=== PATIENT | male | born 2005 | race African-American/Black ===

== ENCOUNTER 2024-09-17 01:10 | Outpatient (CLI) | payer OTHER, SELFPAY | END 2024-09-17 01:11 | disposition home or self-care (01) | LOC: AMB 09-20 20:03 | PROVIDERS: Visit Provider Family Medicine | DX: S09.90XA Unspecified injury of head, initial encounter (principal); V49.49XA Driver injured in collision with other motor vehicles in traffic accident, initial encounter; Y92.481 Parking lot as the place of occurrence of the external cause | CPT/HCPCS: A0998 ==

== ENCOUNTER 2025-01-12 20:39 | Emergency (ER) | payer OTHER, SELFPAY ==
--- OUTSIDE RECORDS SUMMARY | 2025-01-12 20:41 | XMS_ITS | Clinical Summary ---
Author Organization [employer] Address [address] [place] [address] Care Team Providers Care Client Service Coordinator Name Role Phone Florian Stokes MD Primary Care Provide r Immunizations Immunization Administration Dates Next Due COVID-19 vaccine (Pfizer), 0 .3 mL, Injectable, mRNA (Purple Top) 03/20/2021,02/27/2021 Social History Tobacco Use Types Packs/Day Years Used Date Smoking Tobacco: Never Assessed Sex and Gender Information Value Date Recorded Sex Assigned at Not on file Legal Sex Male 3:57 PM PDT Gender Identity Not on file Sexual Orientation Not on file Plan of Treatment Health Maintenance Due Date Last Done Comments Hepatitis C after age 18 2004 Preventative Visit Age 19-39 2004 Meningococcal B Vaccine (1 of 2 - Standard) 2020 HIV Screening 2022 Hepatitis B (1 of 3 - 19+ 3-dose series) 2023 COVID-19 Vaccine ( season) 2024 08/24/2022, 11/12/2021, 03/20/2021, Additional history exists Influenza Vaccine (#1) 2024 , 11/12/2021, 09/19/2020, Additional history exists DTaP/Tdap/Td (3 - Td or Tdap) 06/23/2026 06/23/2016, 11/02/2005 zzz Tetanus 06/23/2026 06/23/2016, 11/02/2005 Respiratory Syncytial Virus (RSV) (1 - 1-dose 75+ series) 2079 HPV Vaccines Completed 10/04/2019, 07/21/2018 Meningococcal Vaccines Completed 06/23/2021, 2015 HIB Aged Out No longer eligi ble based on patient's age to complete this topic Pneumococcal Vaccine Ped (0-5 Years) and At Risk Pts (6-64 Years) Aged Out No longer eligible based on patient's age to complete this topic Insurance [facility] [place] [facility] [place] [facility] Care Teams Client Service Coordinator Relationship Specialty Start Date End Date Florian Stokes MD PCP - General Pediatrics 04/06/18
--- OUTSIDE RECORDS SUMMARY | 2025-01-12 20:41 | XMS_ITS | Referral Summary ---
Author Organization [facility] Address [address] [place] [address] Care Team Providers Care Registered Nurse Hh Case Manager Name Role Phone Florian Stokes MD Primary [...] Orientation Not on file Plan of Treatment Not on file Insurance [facility] Care Teams Registered Nurse Hh Case Manager Relationship Specialty Start Date End Date Florian Stokes MD PCP - General Pediatrics 04/06/18
--- OUTSIDE RECORDS SUMMARY | 2025-01-12 20:41 | XMS_ITS | Clinical Summary ---
Author Organization [employer] [facility] Address [address] [place] [id number] Care Team Providers Care Atm Mechanic Name Role Phone Pcp, No Primary Care Provider Unavailabl e Allergies No known active allergies Medications No known medications Active Problems No known active problems Social History Tobacco Use Types Packs/Day Years Used Date Smoking Tobacco: Never Smokeless Tobacco: Never Tobacco Cessation:Counseling Given: Yes Alcohol Use Standard Drinks/Week Comments Yes 0 (1 standard drink = 0.6 oz pur e alcohol) 1x monthly Sex and Gender Information Value Date Recorded Sex Assigned at Not on file Legal Sex Male 2:13 PM CDT Gender Identity Not on file Sexual Orientation Not on file Obstetrics History Last Filed Vital Signs Vital Sign Reading Time Taken Comments Blood Pressure 120/72 09/25/2024 3:34 PM TOW TRUCK DISPATCHER man ual BP Pulse 62 09/25/2024 3:34 PM TOW TRUCK DISPATCHER Temperature 36.2 C (97.2 F) 09/25/2024 3:34 PM TOW TRUCK DISPATCHER Respiratory Rate - - Oxygen Saturation 98% 09/25/2024 3:34 PM TOW TRUCK DISPATCHER Inhaled Oxygen Concentration - - Weight - - Height - - Body Mass Index - - Plan of Treatment Health Maintenance Due Date Last Done Comments Well Child Check for age 3-20 05/07/2007 Tdap 2015 Depression screening for age 12+ 2016 HIV for age 15-65 2019 HPV series for age 9-26 (1 - Male 3-dose series) 2019 BMI (ht and wt on same day) for age 18+ 2022 Hepatitis C screening for ag e 18-79 2022 Tetanus booster 2024 COVID-19 vaccine series ( season) 2024 03/20/2021, 02/27/2021 Influenza for age 9-49 07/23/2024 Meningococcal series for age 11-21 Aged Out No longer eligible b ased on patient's age to complete this topic Pneumococcal series for age 6-49 Aged Out No longer eligible b ased on patient's age to complete this topic Care Teams Atm Mechanic Relationship Specialty Start Date End Date Pcp, No . PCP - General 09/25/24
--- OUTSIDE RECORDS SUMMARY | 2025-01-12 20:41 | XMS_ITS | Referral Summary ---
Author Organization [employer] Address [address] [place] [address] Care Team Providers Care Cotton Bag Sewer Name Role Phone Gamaliel Canseco Primary Care Provider [phone] Allergies No known active allergies Medications No known medications Social History Tobacco Use Types Packs/Day Years Used Date Smoking Tobacco: Never Assessed Sex and Gender Information Value Date Recorded Sex Assigned at Not on file Legal Sex Male 3:48 PM PDT Gender Identity Not on file Sexual Orientation Not on file Last Filed Vital Signs Vital Sign Reading Time Taken Comments Blood Pressure 124/68 05/11/2022 9:12 PM PDT Pulse 60 05/11/2022 9:12 PM PDT Temperature 37 C (98.6 F) 05/11/2022 9:12 PM PDT Respiratory Rate 18 05/11/2022 9:12 PM PDT Oxygen Saturation 97% 05/11/2022 9:12 PM PDT Inhaled Oxygen Concentration - - Weight - - Height - - Body Mass Index - - Plan of Treatment Not on file Procedures Procedure Name Priority Date/Time Associated Diagnosis Comments LIPID PROFILE W REFLEX DIRECT LDL Routine 06/16/2023 9:10 AM PDT from Last 3 Months or Most Recently Relevant to Health Maintenance Results * (ABNORMAL) Lipid Profile w Reflex Direct LDL (06/16/2023 9:10 AM PDT) Cholesterol 171(H) 0 - 169 mg/dL [facility] Comment:For more information , refer to the [employer] [facility] website (https://www.[employer].UIBLUEPRINT/legacylab). Triglyceride 68 0 - 89 mg/dL [facility] Comment:For more information , refer to the [employer] [facility] website (https://www.Deal.com.sg/legacylab). HDL 51 >=40 mg/dL [facility] Comment:For more information , refer to the [employer] [facility] website (https://www.Deal.com.sg/legacylab). LDL 106 0 - 109 mg/dL [facility] Comment: For more information, refer to the [employer] [facility] website (https://www.Deal.com.sg/legacylab). LDL is calculated from Total Cholesterol, HDL, and Triglycerides using the Friedewald equation. Chol/HDL Ratio 3.4 0.0 - 5.0 [facility] Fasting? 12 [facility] Blood 06/16/2023 9:10 AM PDT 06/16/2023 9:13 AM PDT us Gamaliel Canseco CHEMISTRY ORDERABLES Final Resul t [facility] [address] [place] [address] from Last 3 Months or Most Recently Relevant to Health Maintenance Insurance [facility] Care Teams Cotton Bag Sewer Relationship Specialty Start Date End Date Gamaliel Canseco [address] [place] [id number] PCP - General Pediatrics 05/11/22
--- OUTSIDE RECORDS SUMMARY | 2025-01-12 20:41 | XMS_ITS | Clinical Summary ---
Author Organization [facility] Address [address] [place] [address] Care Team Providers Care Barrel Rifler Name Role Phone Gamaliel Canseco Primary Care Provider [phone] Allergies No known active allergies Medications No [...] Due Date Last Done Comments Hepatitis C Ab Screening 2004 Syphilis (RPR) Screening 2004 Depression Screening (PHQ/EPDS) 2016 HIV Screening 2019 HPV Vaccine (1 - Male 3-dose series) 2019 Meningococcal B Vaccine (1 of 2 - Standard) 2020 Hepatitis B Vaccine (1 of 3 - 19+ 3-dose series) 2023 COVID-19 Vaccine ( - season) 2024 11/12/2021, 03/20/2021, 02/27/2021 Influenza Vaccine (#1) 2024 , 09/19/2020, 10/04/2019, Additional history exists Tetanus Vaccine 06/23/2026 06/23/2016 Zoster Vaccine (1 of 2) 2054 Lipid Screening Completed 06/16/2023 Hepatitis A Vaccine Aged Out No longe r eligible based on patient's age to complete this topic Hib Vaccine Aged Out No longer eligi ble based on patient's age to complete this topic Meningococcal ACWY Vaccine Aged Out N o longer eligible based on patient's age to complete this topic Pneumo Vaccine 0-49 yrs Aged Out No l onger eligible based on patient's age to complete this topic Procedures Procedure Name Priority Date/Time Associated Diagnosis Comments LIPID PROFILE W REFLEX DIRECT LDL Routine 06/16/2023 9:10 AM PDT from Last 3 Months or Most Recently Relevant to Health Maintenance Results * (ABNORMAL) Lipid Profile w Reflex Direct LDL (06/16/2023 9:10 AM PDT) Cholesterol 171(H) 0 - 169 mg/dL [facility] Comment:For more information , refer to the [employer] [facility] website (https://www.Renovagen/legacylab). Triglyceride 68 0 - 89 mg/dL [facility] Comment:For more information , refer to the [employer] [facility] website (https://www.Renovagen/legacylab). HDL 51 >=40 mg/dL [facility] Comment:For more information , refer to the [employer] [facility] website (https://www.Renovagen/legacylab). LDL 106 0 - 109 mg/dL [facility] Comment: For more information, refer to the [employer] [facility] website (https://www.Renovagen/legacylab). LDL is calculated from Total Cholesterol, HDL, and Triglycerides using the Friedewald equation. Chol/HDL Ratio 3.4 0.0 - 5.0 [facility] Fasting? 12 [facility] Blood 06/16/2023 9:10 AM PDT 06/16/2023 9:13 AM PDT us Gamaliel E Helm CHEMISTRY ORDERABLES Final Resul t [facility] [address] [place] [address] from Last 3 Months or Most Recently Relevant to Health Maintenance Insurance [facility] Care Teams Barrel Rifler Relationship Specialty Start Date End Date Gamaliel Canseco [address] [place] [id number] PCP - General Pediatrics 05/11/22
--- OUTSIDE RECORDS SUMMARY | 2025-01-12 20:41 | XMS_ITS | Continuity of Care Document ---
Author Organization [facility] Address [address] [place] [address] [place] [address] Phone Care Team Providers Care Plug Making Operator Name Role Phone Kike POPE, Florian Unavailable Unavailable Allergies, Adverse Reactions, Alerts Substance Reaction Status Criticality No Known Allergies Active No Inform ation Medications Medication Instructions Dosage Effective Dates (start - stop) Status Comments No Drug Therapy Prescribed Procedures Procedure Date Office/outpatient visit,est, mod 2018 Infct antigen, influenza Infct antigen, influenza Office/outpatient visit,est, mod 2018 STREP A DNA AMP PROBE Infcts antign, streptococcus Grp A Office/outpatient visit,est, mod 2017 Pure tone audiometry, air Screening visual acuity,jagdish bilat Preventive checkup, est,12-17 yrs Immuniz admnin, 1 vac, sngl/combo HPV VACCINE NON VALENT IM PT-FOCUSED HLTH RISK ASSMT Office/outpatient visit,est, mod 2016 Pure tone audiometry, air Preventive checkup, new,12-17 yrs Screening visual acuity,jagdish bilat PT-FOCUSED HLTH RISK ASSMT Advance Directives Directive Yes / No Effective Date File Name No Information Encounters Encounter Description Practice Location Reason(s) For Visit Diagnoses Date Provider [facility], [address] [place] [address], [place], [id number], [place] tel:[phone] [facility] No Information Kike Du. [address] [place] [address], [place], [id number], [place]. tel:[phone] Office/outpati ent visit,est, mod [facility], [address] [place] [address], [place], [id number], [place] tel:[phone] [facility] hamstring pain (chief complaint) Strain of left hamstring, initial encounter Kike Du. [address] [place] [address], [place], [id number], [place]. tel:[phone] Office/outpati ent visit,est, mod [facility], [address] [place] [address], [place], [id number], [place] tel:[phone] [facility] hent Cough (chief complaint) CoughInfluenza A King Adriana. [address] [place] [address], [place], [id number], [place]. tel:[phone] [facility], [address] [place] [address], [place], [id number], [place] tel:[phone] [facility] No Information Kike Du. [address] [place] [address], [place], [id number], [place]. tel:[phone] Office/outpati ent visit,est, mod [facility], [address] [place] [address], [place], [id number], [place] tel:[phone] [facility] poss strep (chief complaint) Acute sinusitis, unspecified Kike Du. [address] [place] [address], [place], [id number], [place]. tel:[phone] Preventive checkup, est,12-17 yrs [facility], [address] [place] [address], [place], [id number], [place] tel:[phone] [facility] Well child (chief complaint) Encntr for routine child health exam w/o abnormal findingsBMI pediatric, 5th percentile to less than 85% for ageDietary counseling and surveillance Kike Du. [address] [place] [address], [place], [id number], [place]. tel:[phone] [facility], [address] [place] [address], [place], [id number], [place] tel:[phone] [facility] Lumbar pars defectDorsalgia Kike Du. [address] [place] [address], [place], [id number], [place]. tel:[phone] Office/outpati ent visit,est, mod [facility], [address] [place] [address], [place], [id number], [place] tel:[phone] [facility] neck pain (chief complaint) Injury of neck, initial encounter Haley Matias. [address] [place] [address], [place], [id number], [place]. tel:[phone] Preventive checkup, new,12-17 yrs [facility], [address] [place] [address], [place], [id number], [place] tel:[phone] [facility] Well Child (chief complaint) Encntr for routine child health exam w/o abnormal findingsPediatric body mass index (BMI) of 5th percentile to less than 85th percentile for age Kike Du. [address] [place] [address], [place], [id number], [place]. tel:[phone] [facility], [address] [place] [address], [place], [id number], [place] tel:[phone] [facility] No Information Kike Du. [address] [place] [address], [place], [id number], [place]. tel:[phone] Family History Family Member Type Diagnosis Age At Onset Problem (finding) Family history of attention deficit hyperactivity disorder Problem (finding) Family history of thyro id disease Immunizations Vaccine Date Status Comments HPV (9-valent) administered Source: New I mmunization Record Tdap administered Source: Other P rovider MCV4 administered Source: Other P rovider Influenza, live, intranasal, quadrivalent administered Source: Other Provid er Hep A (ped/adol, 2 dose) administered Leni rce: Other Provider Influenza, live, intranasal, quadrivalent administered Source: Other Provid er varicella virus vaccine administered Sour ce: Parents Written Record diphtheria, tetanus toxoids and acellular pertussis vaccine administered Source: Parents Writ ten Record poliovirus vaccine, inactivated administered Source: Parents Writ ten Record measles, mumps and rubella virus vaccine administered Source: Parents Writ ten Record Hep A (ped/adol, 2 dose) administered Leni rce: Parents Written Record DTaP, 5 pertussis antigens administered S ource: Other Provider pneumococcal conjugate vaccine, 13 valent administered Source: Parents Writ ten Record MMR administered Source: Parents Written Record hepatitis B vaccine, pediatr ic or pediatric/adolescent dosage administered Source: P arents Written Record Varicella administered Source: Parents Written Record Haemophilus influenzae type b vaccine, conjugate unspecified formulation administered Source: Parents Writ ten Record poliovirus vaccine, inactivated administered Source: Parents Writ ten Record pneumococcal conjugate vaccine, 13 valent administered Source: Parents Writ ten Record diphtheria, tetanus toxoids and acellular pertussis vaccine administered Source: Parents Writ ten Record pneumococcal conjugate vaccine, 13 valent administered Source: Parents Writ ten Record hepatitis B vaccine, pediatr ic or pediatric/adolescent dosage administered Source: P arents Written Record Haemophilus influenzae type b vaccine, conjugate unspecified formulation administered Source: Parents Writ ten Record diphtheria, tetanus toxoids and acellular pertussis vaccine administered Source: Parents Writ ten Record poliovirus vaccine, inactivated administered Source: Parents Writ ten Record Hep B (ped/adol, 3 dose) administered Leni rce: Parents Written Record Hib (PRP-T) administered Source: Parents Written Record DTaP, 5 pertussis antigens administered S ource: Parents Written Record Polio, Inactive administered Source: Pare nts Written Record Pneumococcal, PCV-13 administered Source: Parents Written Record Payers Payer name Insurance type Covered green party ID Authoriza tion(s) [place] [id number] [place] [id number] Social History Type Description Quantity Date Captured Comments Sex Male Smoking Status No Information Chief Complaint And Reason For Visit No Information Plan Of Treatment Date Type Action Status Referral Referred To: Physical Therapy Ordered: Referrals: Physical Therapy. Location: [facility] ordered Referral Ordered: Referrals: Diagnostic Radiology. Location: [facility]. Diagnostic testing ordered Referral Referred To: Physical Therapy Ordered: Referrals: Physical Therapy. Location: [facility] ordered History Of Present Illness Encounter Date Complaint History Of Prese nt Illness hamstring pain hent Cough Additional infor mation: Vomiting.//[facility]. poss strep Well child neck pain Onset: 5 days ag o. Additional information: //sa. Well Child 12 yr cc Medications Administered Medication Instructions Dosage Effective Dates (start - stop) Status Comments No Drug Therapy Prescribed Instructions Date Instruction Additional Infor mation Physical activity assessment Rel ated to Body mass index (BMI) pediatric, 5th percentile to less than 85th percentile for age Nutrition surveillance Related t o Body mass index (BMI) pediatric, 5th percentile to less than 85th percentile for age Age appropriate anti cipatory guidance discussed. Related to Encntr for routine child health exam w/o abnormal findings Age appropriate diet miya guidance provided. Related to Encntr for routine child health exam w/o abnormal findings Age appropriate safe ty guidance provided. Related to Encntr for routine child health exam w/o abnormal findings Age appropriate anti cipatory guidance discussed. Related to Encntr for routine child health exam w/o abnormal findings Age appropriate diet miya guidance provided. Related to Encntr for routine child health exam w/o abnormal findings Age appropriate safe ty guidance provided. Related to Encntr for routine child health exam w/o abnormal findings Assessments Type Assessment Date No Information
--- OUTSIDE RECORDS SUMMARY | 2025-01-12 20:41 | XMS_ITS | Data Portability ---
Author Organization [place] - [place], [facility] Address [address] [facility], [facility] [address] [place] [address] Care Team Providers Care Marine Safety Officer Name Role Phone ANNE KIRBY MD Referring Provider [phone] Assessment Encounter Date Assessment Date Assessment LastModified by Organization Details LastModified Time 11/06/2022 11/06/2022 Physical Therapy Assessment Signs and symptoms appear consistent with the following PT diagnosis: mild acute medial hamstring strain as the primary pain generator. Signs and symptoms do not allow us to rule out lumbar spine, knee, hip. Adjacent structures and other contributing factors to this condition include TFL and psoas shortening LUIS DANIEL, history of recurrent hamstring injury, history of aggressive home workouts for football training, tendency for quad dominant strength training. Today's visit: Connor returned today after two days of back pain that appear consistent with potential disc issues with sciatic types symptoms radiating into the L post. thigh, symptoms in the thigh not always the same and therapist suspected hamstring issue is also still prevalent and healing at this time. Reviewed HEP and encouraged patient to add prone press ups; encouraged modification from sprinting and plyometrics however encouraged continued strength training as tolerated. Plan: f/u on back symptoms and re-introduce plyometrics [email or web address] Not available 11/06/2022 18:28:45 11/13/2022 11/13/2022 Telehealth Assessment Method used for this visit synchronous audio/visual platform. This telehealth visit was medically necessary for the patient for the following reason(s): restricted access to care (inclement weather) Today's visit: Connor's symptoms greatly improving in low back with various ROM assessment today, slight end range flexion pain however all other directions were improved with no symptoms. Instructed Connor to return to traditional deadlift with trap bar and returning to squatting, held RDLs and discussed low weight and focus on form at this time. Instructed in mobility activities today for low back and nerve flossing for sciatic nerve, able to work through these for one set each with no reported symptoms. Encouraged light cardio this week as well. Plan: progress to plyometrics as tolerated [email or web address] Not available 11/13/2022 16:02:54 11/20/2022 11/20/2022 Telehealth Assessment Method used for this visit synchronous audio/visual platform. This telehealth visit was medically necessary for the patient for the following reason(s): restricted access to care (inclement weather) Today's visit: No noted symptoms with repeated testing today for lumbar and hamstring symptoms Able to progressed to more mobility activities; heavy encouragement for Connor to remain compliant with these for mcc and back and leg health. Progressed to leg strengthening activities including [place] hamstring curls, split squats, standing clamshells, and SL RDLs; tolerated well instructed Connor to focus on form and avoid over doing things based on sets and reps. Plan: progress to plyometrics as tolerated [email or web address] Not available 11/20/2022 16:14:47 12/14/2022 12/14/2022 Physical Therapy Assessment: Connor has made excellent progress towards his goals of: returning to sprinting, decreasing pain with stretching, and strengthening his hamstrings His pain levels have: decreased in post. thigh and low back He continues to have challenges with: return to full unrestricted activities including higher level plyometric activities with running and jumping, mild weakness in LEs. Based on his presentation today, I would advise we continue PT: 1xMonth for 8 weeks for 2 additional visits. PLAN OF CARE Continue PT 1xMonth for 8 weeks for 2 additional visits. [email or web address] Not available 12/14/2022 21:49:35 01/11/2023 01/11/2023 Physical Therapy Assessment: Connor has made excellent progress with this series of physical therapy. Symptoms have significantly improved, objective measures of range of motion and strength have increased, which has yielded an improvement in function. Given the improvement in status and ability to self-manage, Connor is now appropriate for discharge from physical therapy. Should symptoms return, Connor should return to physical therapy for additional assessment and treatment. -Patient demonstrates good understanding and performance of HEP -Patient demonstrates good understanding of HEP for injury prevention -Patient has returned to previous functional level -Patient displays understanding of training regimen to avoid recurrent injury -Patient is able to maintain proper posture and body mechanics -Patient demonstrates adaptive pain behaviors Today's visit: Progressing well at this time with minimal symptoms with testing today Continued plyometric work including box jumps, shuttle runs with ball tosses, rebounder SL stance work, and SL jumps. Reviewed HEP Program and progressed as needed, Connor is moving well, our goal was to continue to encourage back and leg mobility. PLAN OF CARE: Based on my current assessment, I recommend that the patient be Discharged from PT, continue with their HEP as instructed and call if they have any questions or concerns regarding their home program. [email or web address] Not available 01/11/2023 19:44:46 Plan of Treatment Reminders Order Date Submit Date Provider Last Modified By Organization Details Last Modified Time Details Appointments None record ed. Lab None record ed. Referral None record ed. Procedures None record ed. Surgeries None record ed. Imaging None record ed. Medication Orders None record ed. 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 1 Not available Not available Not available [facility] goal of Functional Scores Patient-Speci fic Functional Scale Activity 1=7 Not available Not available Not available [facility] goal of Functional Scores Patient-Speci fic Functional Scale Activity 3=7 Not available Not available Not available [facility] goal of Functional Scores Patient-Speci fic Functional Scale Activity 2=7 Not available Not available Not available middle or intermediate school principal goal of HEP Compliance independent in home exercise program Not available Not available Not available 11/13/2022 [id number] 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 Scale 1 Not available Not available Not available middle or intermediate school principal goal of Functional Scores Patient-Speci fic Functional Scale Activity 1=7 Not available Not available Not available middle or intermediate school principal goal of Functional Scores Patient-Speci fic Functional Scale Activity 3=7 Not available Not available Not available [facility] goal of Functional Scores Patient-Speci fic Functional Scale Activity 2=7 Not available Not available Not available middle or intermediate school principal goal of HEP Compliance independent in home exercise program Not available Not available Not available 11/20/2022 [id number] [facility] goal of Pain Scale 1 Not available Not available Not available middle or intermediate school principal goal of Functional Scores Patient-Speci fic Functional Scale Activity 1=7 Not available Not available Not available middle or intermediate school principal goal of Functional Scores Patient-Speci fic Functional Scale Activity 3=7 Not available Not available Not available middle or intermediate school principal goal of Functional Scores Patient-Speci fic Functional Scale Activity 2=7 Not available Not available Not available middle or intermediate school principal goal of HEP Compliance independent in home exercise program Not available Not available Not available 12/14/2022 [id number] [facility] goal of Pain Scale 1 Not available Not available Not available middle or intermediate school principal goal of Functional Scores Patient-Speci fic Functional Scale Activity 1=7 Not available Not available Not available middle or intermediate school principal goal of Functional Scores Patient-Speci fic Functional Scale Activity 3=7 Not available Not available Not available [facility] goal of Functional Scores Patient-Speci fic Functional Scale Activity 2=7 Not available Not available Not available [facility] goal of HEP Compliance independent in home exercise program Not available Not available Not available 01/11/2023 [id number] Pain Scale 1 Not available Not available Not available Functional Scores Patient-Speci fic Functional Scale Activity 1=7 Not available Not available Not available Functional Scores Patient-Speci fic Functional Scale Activity 3=7 Not available Not available Not available Functional Scores Patient-Speci fic Functional Scale Activity 2=7 Not available Not available Not available HEP Compliance independent in home exercise program Not available Not available Not available Patient Instructions Encounter Date Encounter Id Patient Instructions Last Modified By Organization Details Last Modified Time 11/06/2022 [id number] Access Code: [email or web address] URL: [email or web address] Date: 11/06/2022 Prepared by: Willem West Program Notes Yoga 2x per week. Isolated hamstring, quad, calf, hip flexor stretching will be helpful mcc. For the next 2 weeks- no sprinting, light jogging is okay as long as pain < 3/10. Decrease range and resistance with lift or squats etc. Exercises Supine Gluteus and Hamstring Sets on Uzbek Ball - 1 x daily - 7 x weekly - 2 sets - 10 reps - 10 seconds hold Table Bridge - 1 x daily - 4-5 x weekly - 3 sets - 8 reps Prone Hip Flexor Stretch on Table with Strap - 1 x daily - 7 x weekly - 2 sets - 60 seconds hold Supine Hip Internal and External Rotation - 1 x daily - 7 x weekly - 2 sets - 60 seconds hold Prone Press Up - 3-6 x daily - 7 x weekly - 1 sets - 10 reps [email or web address] Not available 11/06/2022 18:15:37 11/13/2022 [id number] Access Code: [email or web address] URL: [email or web address] Date: 11/06/2022 Prepared by: Willem West Program Notes Yoga 2x per week. 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 For the next 2 weeks- no sprinting, light jogging is okay as long as pain < 3/10. Decrease range and resistance with lift or squats etc. Exercises Supine Gluteus and Hamstring Sets on Uzbek Ball - 1 x daily - 7 x weekly - 2 sets - 10 reps - 10 seconds hold Table Bridge - 1 x daily - 4-5 x weekly - 3 sets - 8 reps Prone Hip Flexor Stretch on Table with Strap - 1 x daily - 7 x weekly - 2 sets - 60 seconds hold Supine Hip Internal and External Rotation - 1 x daily - 7 x weekly - 2 sets - 60 seconds hold Prone Press Up - 3-6 x daily - 7 x weekly - 1 sets - 10 reps [email or web address] Not available 11/13/2022 15:36:32 11/20/2022 [id number] Access Code: [email or web address] URL: [email or web address] Date: 11/06/2022 Prepared by: Willem West Program Notes Yoga 2x per week. Isolated hamstring, quad, calf, hip flexor stretching will be helpful mcc. For the next 2 weeks- no sprinting, light jogging is okay as long as pain < 3/10. Decrease range and resistance with lift or squats etc. Exercises Supine Gluteus and Hamstring Sets on Uzbek Ball - 1 x daily - 7 x weekly - 2 sets - 10 reps - 10 seconds hold Table Bridge - 1 x daily - 4-5 x weekly - 3 sets - 8 reps Prone Hip Flexor Stretch on Table with Strap - 1 x daily - 7 x weekly - 2 sets - 60 seconds hold Supine Hip Internal and External Rotation - 1 x daily - 7 x weekly - 2 sets - 60 seconds hold Prone Press Up - 3-6 x daily - 7 x weekly - 1 sets - 10 reps [email or web address] Not available 11/19/2022 16:55:15 12/14/2022 [id number] Access Code: [email or web address] URL: [email or web address] Date: 11/06/2022 Prepared by: Willem West Program Notes Yoga 2x per week. Isolated hamstring, quad, calf, hip flexor stretching will be helpful mcc. For the next 2 weeks- no sprinting, light jogging is okay as long as pain < 3/10. Decrease range and resistance with lift or squats etc. Exercises Supine Gluteus and Hamstring Sets on Uzbek Ball - 1 x daily - 7 x weekly - 2 sets - 10 reps - 10 seconds hold Table Bridge - 1 x daily - 4-5 x weekly - 3 sets - 8 reps Prone Hip Flexor Stretch on Table with Strap - 1 x daily - 7 x weekly - 2 sets - 60 seconds hold Supine Hip Internal and External Rotation - 1 x daily - 7 x weekly - 2 sets - 60 seconds hold Prone Press Up - 3-6 x daily - 7 x weekly - 1 sets - 10 reps [email or web address] Not available 12/14/2022 14:32:57 01/11/2023 [id number] Access Code: [email or web address] URL: [email or web address] Date: 11/06/2022 Prepared by: Willem West Program Notes Yoga 2x per week. Isolated hamstring, quad, calf, hip flexor stretching will be helpful mcc. For the next 2 weeks- no sprinting, light jogging is okay as long as pain < 3/10. Decrease range and resistance with lift or squats etc. Exercises Supine Gluteus and Hamstring Sets on Uzbek Ball - 1 x daily - 7 x weekly - 2 sets - 10 reps - 10 seconds hold Table Bridge - 1 x daily - 4-5 x weekly - 3 sets - 8 reps Prone Hip Flexor Stretch on Table with Strap - 1 x daily - 7 x weekly - 2 sets - 60 seconds hold Supine Hip Internal and External Rotation - 1 x daily - 7 x weekly - 2 sets - 60 seconds hold Prone Press Up - 3-6 x daily - 7 x weekly - 1 sets - 10 reps [email or web address] Not available 01/11/2023 18:52:49 Reason for Referral None Reported. Problems Name Problem SNOMED Code Status Onset Date Resolution Date Notes Provider Name and Address Organization Details Recorded Time Strain of hamstring muscle 253722886315 Active 2021 Brianna Chacko DPT [address] [facility], [address], [address], [place] - [facility] 15:56:37 Problem Notes None recorded. Procedures Surgical History Date Name Laterality Status Provider Name and Address Organization Details Recorded Time 9 42729:*[place] Total Billable Treatment Duration completed Brianna Chacko DPT [address]338 [facility], [address], [address], [place] [facility] 03/14/2019 19:47:13 9 97022:*[place] Total Billable Treatment Duration completed Brianna Chacko DPT [address] [facility], [address], [address], [place] [facility] 03/12/2019 20:08:32 9 79468: *Therapeutic Activities completed Brianna Chacko DPT [address] [facility], [address], [address], [place] [facility] 03/12/2019 20:10:46 9 53138 PT Evaluation Medium Complexity completed Brianna Chacko DPT [address]142 [facility], [address], [address], [place] [facility] 03/12/2019 20:10:25 8 21729:*[place] Total Billable Treatment [place] [address] [facility], [address], [address], [place] [facility] 02/22/2018 19:13:34 8 09937: *The[place] [address] [facility], [address], [address], [place] [facility] 02/22/2018 20:24:42 8 09417:*[place] Total Billable Treatment [place] [address] [facility], [address], [place], [address], [place] [facility] 02/18/2018 19:46:01 8 33105: Manual Therapy (1:1) [place] [address] [facility], [address], [place], [address], [place] [facility] 02/18/2018 19:46:01 8 01279: *Therapeutic Activities [place] [address] [facility], [address], [place], [address], [place] [facility] 02/18/2018 19:52:16 8 51603:*[place] Total Billable Treatment [place] [address] [facility], [address], [place], [address], [place] [facility] 02/15/2018 19:08:06 8 98881: Manual Therapy (1:1) [place] [address] [facility], [address], [place], [address], [place] [facility] 02/15/2018 19:07:42 8 30031: *Therapeutic Activities [place] [address] [facility], [address], [place], [address], [place] [facility] 02/15/2018 19:42:06 8 91485:*[place] Total Billable [place] [address] [facility], [address], [place], [address], [place] [facility] 02/11/2018 20:26:23 8 91538: Manual Therapy (1:1) [place] [address] [facility], [address], [place], [address], [place] [facility] 02/11/2018 20:25:52 8 73012: *Therapeutic Activities [place] [address] [facility] [address] [facility] [address], [address], [place], [address], [place] [facility] 02/11/2018 20:25:52 8 20561:*[place] Total Billable Treatment [place] [address] [facility] [address], [address], [place], [address], [place] [facility] 01/31/2018 10:27:47 8 80361: Manual Therapy (1:1) [place] [address] [address], [address], [place], [address], [place] [facility] 01/31/2018 10:11:00 8 87830: *[place]rapeutic [place] [address] [address], [address], [place], [address], [place] [facility] 01/31/2018 10:43:18 8 84634:*[place] Total Billable [place] [address], [address], [place], [address], [place] [facility] 01/28/2018 10:45:20 8 04675: Manual Therapy (1:1) [place] [address] [address], [address], [place], [address], [place] [facility] 01/28/2018 10:45:01 8 09788: *Therapeutic [place] [address] [address], [address], [place], [address], [place] [facility] 01/28/2018 10:45:01 8 38380:*[place] Total Billable Treatment [place] [address] [facility], [address], [place], [address], [place] [facility] 01/25/2018 10:11:22 8 80642: Manual Therapy (1:1) [place] [address] [facility], [address], [place], [address], [place] [facility] 01/25/2018 10:11:42 8 08657: *Therapeutic [place] [address] [facility], [address], [place], [address], [place] [facility] 01/25/2018 10:44:02 8 41895:*[place] Total Billable Treatment [place] [address] [facility], [facility] [address], [place], [address], [place] [facility] 01/20/2018 17:03:23 8 33068: *Therapeutic [place] [address] [facility], [address], [place], [address], [place] [facility] 01/20/2018 17:03:42 8 37573 PT Evaluation Medium [place] [address] [facility], [facility] [address], [place], [address], [place] [facility] 01/20/2018 17:01:21 Imaging Results None recorded. Procedure Notes None recorded. Medical Equipment None Reported. 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 01/21/2018 14:08:53 What Is Your Level Of Alcohol Consumption? None Information not available 01/21/2018 What Is Your Level Of Caffeine Consumption? Occasional Information not available 01/21/2018 Live Alone Or With Others? With Others Information not available 01/21/2018 Living Setting Stairs (railing) Info rmation not available 01/21/2018 Do You Exercise Outside Of Normal Daily Activities? 3-4 Days/wk Information not available 01/21/2018 Occupation Status Student Information not available 01/21/2018 Exercise, Sports/Recreati on Consisting Of Football, Wrestling, Running, Playing Information not available 01/21/2018 How Do You Rate Your General Health? Excellent Information not available 01/21/2018 Are You Seeing Any Other Health Care Providers Other Than The Physical Therapist For This Condition? Im Not Information not available 01/21/2018 Previous Functional Level Independent In All Self-care Activities (bathing-toileti gu-[id number]. ) Information not available 01/21/2018 What Was The Date Of Your Most Recent Tobacco Screening? 01/21/2018 Information not available 06/15/2019 General Stress Level Low Information not available 01/21/2018 Sex: Unknown Functional Status None recorded. Mental Status None recorded. Family History Relationship Description Onset Age of this Age Resolved Age Notes LastModified by Organization Details LastModified Time Unspecified Relation Diabetes mellitus Not available 01/21 14:08:44 Unspecified Relation Heart disease Not available 01/21 14:08:49 Medical History No medical history recorded. Past Encounters Encounter ID Performer Location Encounter Start Date Encounter Closed Date Diagnosis/Indication Diagnosis SNOMED-CT Code Diagnosis ICD10 Code Diagnosis Note [id number] Jose Valdes, PT [facility] [address] [place] [address], [address] [place] [address] 01/20/2018 12:00:11 01/20/2018 13:30:11 Strain of hamstring muscle 8030474809 04 S76.319A [id number] Jose Valdes, PT [facility] [address], [address] [place] [address] 01/25/2018 10:10:20 01/25/2018 10:54:55 Strain of hamstring muscle [id number] 04 S76.319A [id number] Raphael Wong, [facility] [address], [address] [place] [address] 01/28/2018 10:35:38 01/28/2018 13:04:25 Strain of hamstring muscle [id number] 04 S76.319A [id number] Raphael Wong, PT [facility] [address], [address] [place] [address] 01/31/2018 09:59:43 01/31/2018 11:02:23 Strain of hamstring muscle 0333308747 04 S76.319A [id number] Raphael Wong, PT [facility] [address], [address] [place] [address] 02/11/2018 19:34:38 02/11/2018 20:21:15 Strain of hamstring muscle 0211085174 04 S76.319A [id number] Raphael Wong PT [facility] [address], [address] [place] [address] 02/15/2018 18:57:11 02/15/2018 20:27:31 Strain of hamstring muscle 6638141892 04 S76.319A [id number] Raphael Wong, PT [facility] [address], [address] [place] [address] 02/18/2018 19:10:02 02/18/2018 19:48:35 Strain of hamstring muscle 3820340122 04 S76.319A [id number] Jose Valdes, PT [facility] [place] [address], [address] [place] [address] 02/22/2018 19:09:15 02/22/2018 19:50:53 Strain of hamstring muscle 5634655677 04 S76.319A [id number] Brianna Chacko, DPT [facility] [place] [address], [address] [place] [address] 03/11/2019 12:41:34 03/11/2019 13:39:51 Strain of hamstring muscle 2635457435 S76.311D [id number] Brianna Chacko, DPT [facility] [place] [address], [address] [place] [address] 03/14/2019 19:42:30 03/14/2019 20:34:06 Strain of hamstring muscle 5845852518 S76.311D [id number] Brianna Chacko, DPT [facility] [place] [address], [address] [place] [address] 03/17/2019 19:42:35 03/17/2019 20:38:01 Strain of hamstring muscle [id number] S76.311D [id number] Brianna Chacko, DPT [facility] [place] [address] [place] [address] 03/21/2019 18:59:47 03/21/2019 19:57:24 Strain of hamstring muscle [id number] S76.311D [id number] Jose Valdes, PT [facility] [place] [address], [address] [place] [address] 04/06/2019 18:39:31 04/06/2019 20:02:48 Strain of hamstring muscle [id number] S76.311D [id number] Eloy Dowling PT [facility] [place] [address] [place] [address] 01/04/2020 09:07:48 01/04/2020 10:07:45 Pain in left knee [id number] 38600 M25.562 Sprain of medial collateral ligament of knee 79410399 S83.412D Tenderness on medial joint line of knee 108328882 M25.767 [id number] Jose Valdes, PT [facility] [place] [address] [place] [address] 01/11/2020 10:06:04 01/11/2020 11:25:54 Pain in left knee [id number] 70748 M25.562 Sprain of medial collateral ligament of knee 30740392 S83.412D Tenderness on medial joint line of knee 612842322 M25.757 [id number] Jose Valdes, PT [facility] [place] [address] [place] [address] 01/18/2020 11:02:19 01/18/2020 12:02:57 Pain in left knee 5310355357 95570 M25.562 Sprain of medial collateral ligament of knee 03838631 S83.412D Tenderness on medial joint line of knee 802620710 M25.734 [id number] Brianna Chacko DPT [facility] [place] [address] [place] [address] 01/24/2020 19:29:04 01/24/2020 20:30:25 Pain in left knee [id number] 86459 M25.562 Sprain of medial collateral ligament of knee 80048378 S83.412D Tenderness on medial joint line of knee 307386329 M25.925 [id number] Jose Valdes, PT [facility] [place] [address] [place] [address] 02/01/2020 12:58:09 02/01/2020 13:40:04 Pain in left knee [id number] 86156 M25.562 Sprain of medial collateral ligament of knee 91045237 S83.412D Tenderness on medial joint line of knee 147080530 M25.277 [id number] Brianna Chacko DPT [facility] [place] [address] [facility] [place] [address] 07/30/2021 20:55:01 07/30/2021 22:17:50 Knee pain 00170017 M25.569 Sprain of medial collateral ligament of knee 26449422 S83.412D Sprain of lateral collateral ligament of knee 05309326 S83.422D [id number] Brianna Chacko DPT [facility] [place] [address] [place] [address] 08/06/2021 20:27:31 08/06/2021 21:54:26 Knee pain 15566017 M25.569 Sprain of medial collateral ligament of knee 28833092 S83.412D Sprain of lateral collateral ligament of knee 63924312 S83.422D [id number] Brianna Chacko, DPT [facility] [place] [address] [place] [address] 08/20/2021 11:27:17 08/20/2021 12:36:27 Knee pain 85165700 M25.569 Sprain of medial collateral ligament of knee 84074113 S83.412D Sprain of lateral collateral ligament of knee 57861274 S83.422D [id number] Pelon Woodson, PT [facility] [place] [address] [place] [address] 11/05/2021 19:30:02 11/05/2021 21:07:06 Patellofemoral stress syndrome 030322637 M22.2X9 Patellar maltracking 250 914036 M22.2X9 [id number] Willem West, PT [facility] [place] [address] [place] [address] 11/10/2021 14:16:13 11/10/2021 15:03:06 Patellofemoral stress syndrome 886274194 M22.2X9 Patellar maltracking 250 015465 M22.2X9 [id number] Willem West, PT [facility] [place] [address] [place] [address] 11/12/2021 12:27:21 11/12/2021 13:32:30 Patellofemoral stress syndrome 108122281 M22.2X9 Patellar maltracking 250 106768 M22.2X9 [id number] Jose Angel Barton, [employer] [facility] [place] [address] [place] [address] 11/28/2021 18:46:46 11/28/2021 20:52:54 Patellofemoral stress syndrome 256091910 M22.2X9 Patellar maltracking 250 673513 M22.2X9 [id number] Willem West, PT [facility] [place] [address] [place] [address] 12/08/2021 20:06:50 12/08/2021 20:49:41 Patellofemoral stress syndrome 302634952 M22.2X9 Patellar maltracking 250 176860 M22.2X9 [id number] Willem West, PT [facility] [place] [address] [place] [address] 12/17/2021 20:22:56 12/17/2021 21:35:31 Patellofemoral stress syndrome 991845876 M22.2X9 Patellar maltracking 250 916966 M22.2X9 [id number] Willem West, PT [facility] [place] [address] [place] [address] 12/24/2021 18:54:37 12/24/2021 19:54:56 Patellofemoral stress syndrome 901052058 M22.2X9 Patellar maltracking 250 840750 M22.2X9 [id number] Jose Angel Barton, [employer] [facility] [place] [address] [place] [address] 12/31/2021 19:45:34 12/31/2021 20:57:45 Patellofemoral stress syndrome 960772334 M22.2X9 Patellar maltracking 250 191388 M22.2X9 [id number] Jose Angel Barton, [employer] [facility] [place] [address] [place] [address] 01/07/2022 19:46:43 01/07/2022 20:44:24 Patellofemoral stress syndrome 662114401 M22.2X9 Patellar maltracking 250 876094 M22.2X9 [id number] Jose Angel Barton, [employer] [facility] [place] [address] [place] [address] 01/14/2022 19:03:11 01/14/2022 19:53:11 Patellofemoral stress syndrome 248743402 M22.2X9 Patellar maltracking 250 272120 M22.2X9 [id number] Willem West, PT [facility] [place] [address] [place] [address] 01/21/2022 18:57:43 01/21/2022 19:56:26 Patellofemoral stress syndrome 682207001 M22.2X9 Patellar maltracking 250 462560 M22.2X9 [id number] Brianna Chacko, DPT [facility] [place] [address] [place] [address] 10/22/2022 12:58:22 10/22/2022 14:16:58 Strain of hamstring muscle 1302212591 04 S76.311D [id number] Willem West, PT [facility] [place] [address] [place] [address] 11/06/2022 17:32:25 11/06/2022 18:30:39 Strain of hamstring muscle 1525881171 04 S76.311D [id number] Willem Brett, PT [facility] [place] [address] [place] [address] 11/13/2022 15:30:27 11/14/2022 18:37:22 Strain of hamstring muscle 8622777599 04 S76.311D [id number] Willem West, PT [facility] [place] [address] [place] [address] 11/20/2022 12:59:17 11/20/2022 13:48:01 Strain of hamstring muscle 0432415777 04 S76.311D [id number] Willem West, PT [facility] [place] [address] [place] [address] 12/14/2022 18:59:58 12/14/2022 19:37:42 Strain of hamstring muscle 6290593476 04 S76.311D [id number] Willem West, PT [facility] [place] [address] [place] [address] 01/11/2023 19:00:30 01/11/2023 19:58:41 Strain of hamstring muscle 7206554338 04 S76.311D Health Concerns Section Related Observation LastModified by Organization Detai ls LastModified Time None Recorded Concern Status LastModified by Organization Details LastModified Time None Recorded Advance Directives Directive None Recorded Payers Encounter Date Sequence Insurance Name Policy Number Policy Louise Covered Member ID Louise Member ID Guarantor Name 11/06/2022 1 [facility] [id number] Natasha White [id number] 11/13/2022 1 [facility] [id number] Natasha White [id number] 11/20/2022 1 [facility] [id number] Natasha White [id number] 12/14/2022 1 [facility] [id number] Natasha White [id number] 01/11/2023 1 [facility] [id number] Natasha White [id number] Notes Date Note Type Note Provider Name and Address Organization Details Recorded Time 11/06/2022 text/html HPI DailyReporte d bypatient.Notes:Rep orts that he was deadlifting and then afterwards went to reach down in a cabinet that symptoms began Reports that bending forward has been painful, it is improving but has been troublesome. Functional Assessment (PSFS Master)Reported bypatient.Functiona l Scores:Patient-Spec ific Functional Scale Activity 1= stretch pain free :Status 2; Patient-Specific Functional Scale Activity 2 = sprinting drills pain free :Status 2; Patient-Specific Functional Scale Activity 3= isolated HS strengthening without pain: Status 2 [place] [address], [address], [place] - [facility] 11/06/2022 18:29:16 11/13/2022 text/html HPI DailyReporte d bypatient.Notes:Rep orts that back is doing better Reports that he hasn't been too active Reports that back pain has still persisted but only in the low back instead of radiating down into the legs Reports he is finding he can move a little bit better with bending Functional Assessment (PSFS Master)Reported bypatient.Functiona l Scores:Patient-Spec ific Functional Scale Activity 1= stretch pain free :Status 2; Patient-Specific Functional Scale Activity 2 = sprinting drills pain free :Status 2; Patient-Specific Functional Scale Activity 3= isolated HS strengthening without pain: Status 2 Telehealth Visit Consent {{Patient* Guardian }} acknowledged understanding of telehealth physical therapy and verbally consented to receiving physical therapy care virtually. Physical Location of Patient:{{input address [address] [facility] [place] [address]#}} Emergency Contact Name:{{input emergency contact name Natasha White#}} Emergency Contact Number:{{input emergency contact number #}} [place] [address] [facility], [address], [address], [employer] [place] [employer] 11/13/2022 16:33:44 11/20/2022 text/html HPI DailyReporte d bypatient.Notes:Rep orcedric that overall pain has felt better Reports less consistent with HEP program Reports by patient and caregiver Functional Assessment (PSFS Master)Reported bypatient.Functiona l Scores:Patient-Spec ific Functional Scale Activity 1= stretch pain free :Status 2; Patient-Specific Functional Scale Activity 2 = sprinting drills pain free :Status 2; Patient-Specific Functional Scale Activity 3= isolated HS strengthening without pain: Status 2 [place] [address], [address], [employer] [place] - [employer] 11/20/2022 16:14:56 12/14/2022 text/html HPI DailyReporte d bypatient.Notes:Rep blackwood that overall things are going well Reports that he murphy been keeping up with strength training in the gym and getting on the field as well (some light drills) Reports that he has been keeping up with HEP program Doing his gym routine fairly well. Functional Assessment (PSFS Master)Reported bypatient.Functiona l Scores:Patient-Spec ific Functional Scale Activity 1= stretch pain free :Status 9; Patient-Specific Functional Scale Activity 2 = sprinting drills pain free :Status 10 = Able to perform activity at preinjury level; Patient-Specific Functional Scale Activity 3= isolated HS strengthening without pain: Status 8 [place] [address] [facility], [address], [address], [employer] [place] - [employer] 12/14/2022 21:50:08 01/11/2023 text/html HPI DailyReporte d bypatient.Notes:Rep blackwood has begun track workouts MWF, overall going well; mostly doing conditioning and form work. Gym and HEP every other day splits, doing both UE/LE and full body strengthening with plyometrics as well. Dealing with some food poisoning and seemed to increase his back pain as he was more bed ridden. Functional Assessment (PSFS Master)Reported bypatient.Functiona l Scores:Patient-Spec ific Functional Scale Activity 1= stretch pain free :Status 9; Patient-Specific Functional Scale Activity 2 = sprinting drills pain free :Status 10 = Able to perform activity at preinjury level; Patient-Specific Functional Scale Activity 3= isolated HS strengthening without pain: Status 8 [place] [address] [facility], [address], [address], [place] - [facility] 01/11/2023 20:04:35
--- OUTSIDE RECORDS SUMMARY | 2025-01-12 20:41 | XMS_ITS | Encounter Summary ---
Author Organization [facility] Address [address] [place] [address] Care Team Providers Care Dross Puller Name Role Phone Florian Stokes MD Primary Care Provide r Encounter Details Date Type Department Care Team (Late st Contact Info) Description 04/06/2018 Transcribe Orders [facility], [address] [place] [address] Florian Stokes MD [address] [place] [address] Backache Social History Tobacco Use Types Packs/Day Years Used Date Smoking Tobacco: Never Assessed Sex and Gender Information Value Date Recorded Sex Assigned at Not on file Legal Sex Male 3:57 PM PDT Gender Identity Not on file Sexual Orientation Not on file documented as of this encounter Plan of Treatment Not on file documented as of this encounter Results * XR THORACO LUMBAR SPINE 4 VIEWS (04/06/2018 4:34 PM PDT) Anatomical Region Laterality Modality Digital Radiogra phy 04/06/2018 4:34 PM PDT Impressions 04/06/2018 4:38 PM PDT IMPRESSION: 1. No evidence for an acute displaced fracture of the visualized thoracolumbar spine. There is no loss of the visualized vertebral body or disc space heights. Final Reading DrGerald: Med Mckinnon This report has been electronically signed by: Med Mckinnon Narrative 04/06/2018 4:38 PM PDT EXAM: XR THORACO LUMBAR SPINE 4 VIEWS CLINICAL INFORMATION: PAIN. 12-year-old male, wrestling injury with back pain. COMPARISON: None. FINDINGS: Please note, lateral evaluation of the upper thoracic spine is obscured by overlying structures. There is no malalignment of the visualized thoracic spine. There is no significant loss of the visualized vertebral body or disc space heights. There is no evidence for an acute displaced fracture. The lumbar spine maintains a normal lordotic curvature. There is no malalignment within the lumbar spine. There is no significant loss of the vertebral body or disc space heights. There is no evidence for an acute displaced fracture. Procedure Note Med Mckinnon MD - 04/06/2018 EXAM: XR THORACO LUMBAR SPINE 4 VIEWS CLINICAL INFORMATION: PAIN. 12-year-old male, wrestling injury with back pain. COMPARISON: None. FINDINGS: Please note, lateral evaluation of the upper thoracic spine is obscured by overlying structures. There is no malalignment of the visualized thoracic spine. There is no significant loss of the visualized vertebral body or disc space heights. There is no evidence for an acute displaced fracture. The lumbar spine maintains a normal lordotic curvature. There is no malalignment within the lumbar spine. There is no significant loss of the vertebral body or disc space heights. There is no evidence for an acute displaced fracture. IMPRESSION: 1. No evidence for an acute displaced fracture of the visualized thoracolumbar spine. There is no loss of the visualized vertebral body or disc space heights. Final Reading Dr.: Med Mckinnon This report has been electronically signed by: Med Mckinnon Florian Stokes MD IMAGING - DIAGNOSTIC RADIOLOGY Final Result documented in this encounter Visit Diagnoses Diagnosis Backache Backache, unspecified Backache Backache, unspecified documented in this encounter Care Teams Dross Puller Relationship Specialty Start Date End Date Florian Stokes MD PCP - General Pediatrics 04/06/18 documented as of this encounter
[2025-01-12 20:44] VITALS: BP 125/71; PULSE 62; RESP 18; TEMP 36.2; O2SAT 99; BMI 25.1
[2025-01-12] MEDS: KETOROLAC 15 MG/ML inj IVP (21:03)
[2025-01-12] MEDS: LIDOCAINE 5% PATCH 1 PATCH TRANSDERMA (21:04)
--- NOTE | 2025-01-12 21:09 | ED.BACK ---
HPI - Back Pain/Injury General Date Seen: 01/12/25 Chief Complaint: Back Injury/Pain Stated Complaint: back injury Time Seen by Provider: 01/12/25 20:42 Source: patient and EMS Mode of arrival: EMS Limitations: no limitations History of Present Illness HPI Narrative: Patient is a 19-year-old male presenting to the emergency department for back pain. He states he was doing lifts when he developed the back pain. He states he suddenly felt a pop in his back and after that he was unable to walk. EMS gave him 100 of fentanyl he states after that the pain has been better. States pain is in his low back roughly around L4 area. Denies saddle anesthesia. States pain does seem to radiate down both legs. Has never had pain like this before. No other concerns noted. Has not notice any urinary incontinence or fecal incontinence. Has not tried urinate since it occurred so has not noticed any retention. Related Data Previous Rx's ?Medication ?Instructions ?Recorded ondansetron 4 mg disintegrating 4 mg PO Q6H PRN nausea and 09/18/24 tablet vomiting #10 tabs ketorolac 10 mg tablet 10 mg PO Q6H PRN pain #20 tabs 01/12/25 lidocaine 5 % patch and menthol 6 See Rx Instructions topical 01/12/25 % gel topical kit .COMPLEX #5 ea oxycodone 5 mg tablet 5 mg PO Q6H PRN pain #12 tabs 01/12/25 Allergies Allergy/AdvReac Type Severity Reaction Status Date / Time No Known Drug Allergies Allergy Verified 09/18/24 19:20 Review of Systems Narrative: Pertinent systems reviewed and were negative unless stated in HPI PFSH PFSH Social History Smoking Status: Never smoker Do you use any of these nicotine containing products: None How often do you have a drink containing alcohol: never How often do you have six or more drinks on one occasion: Never AUDIT-C Alcohol total score: 0 Non-prescribed substance use: denies use service: No Exam Narrative: Exam Narrative: Const: Well-nourished, Well-developed, in moderate distress Eyes: PERRL, no conjunctival injection, and symmetrical lids HENT: Atraumatic external nose and ears. Moist mucous membranes. Neck: Symmetric, trachea midline, No thyromegaly. CVS: RRR, No murmurs or gallops. Peripheral pulses 2+ and equal in all extremities RESP: Unlabored respiratory effort. Clear to auscultation bilaterally. GI: Nontender/Nondistended, No rebound or guarding. MSK:Extremities w/o deformity, Normal Active ROM, tenderness across the back around L4 region. Positive straight leg test on both sides. Is able to ambulate Skin: Warm, Dry. No rashes or lesions. Neuro: Normal Muscle tone, No focal neurological deficits. Psych: Awake, Alert, & Oriented x3. Appropriate mood and affect. Const: Vital Signs, click to edit/add: Vital Signs - 24 hr 01/12/25 20:44 Temperature 97.1 F L Pulse Rate [Left P ulse Oximeter] 62 Respiratory Rate 18 Blood Pressure [Le ft Upper Arm] 125/71 Pulse Oximetry 99 Oxygen Delivery Me thod Room Air Course Vital Signs Vital signs: Initial Vital Signs Temperature 97.1 F L 01/12/25 20:44 Temperature Source Temporal Artery Scan 01/12/25 20:44 Pulse Rate 62 01/12/25 20:44 Pulse Rhythm Regular 01/12/25 20:44 Respiratory Rate 18 01/12/25 20:44 Blood Pressure 125/71 01/12/25 20:44 Blood Pressure Mean 89 01/12/25 20:44 Blood Pressure Position Semi-Fowlers 01/12/25 20:44 Pulse Oximetry 99 01/12/25 20:44 Oxygen Delivery Method Room Air 01/12/25 20:44 Vital Signs Temperature 97.1 F L 01/12/25 20:44 Pulse Rate 62 01/12/25 20:44 Respiratory Rate 18 01/12/25 20:44 Blood Pressure 125/71 01/12/25 20:44 Pulse Oximetry 99 01/12/25 20:44 Oxygen Delivery Method Room Air 01/12/25 20:44 Temperature 97.1 F L 01/12/25 20:44 Pulse Rate 62 01/12/25 20:44 Respiratory Rate 18 01/12/25 20:44 Blood Pressure 125/71 01/12/25 20:44 Pulse Oximetry 99 01/12/25 20:44 Oxygen Delivery Method Room Air 01/12/25 20:44 Medications Administered Medications: Generic Name Dose Route Start Last Admin Trade Name Freq PRN Reason Stop Dose Admin Ketorolac Tromethamine 15 mg 01/12/25 20:53 01/12/25 21:03 Ketorolac 15 Mg/Ml Inj IVP 01/12/25 20:54 15 mg ONCE ONE Administration Lidocaine 1 patch 01/12/25 20:53 01/12/25 21:04 Lidocaine 5% Patch TRANSDERMA 01/12/25 20:54 1 patch ONCE ONE Administration Protocol MDM - Back Pain/Injury MDM Narrative Medical decision making narrative: Patient is a 19-year-old male presenting to the emergency department for back pain. I believe he has a herniated disc were back strain. He has no saddle anesthesia. We did a postvoid bladder scan with a residual of 7 mL. He has no signs of cauda equina at this time. He is feeling better after the Toradol and Lidoderm patch. I am comfortable discharging the patient home. Will provide pain medication home informed him that the symptoms are not improving he may need to see primary care to be set up with physical therapy. He is agreeable to this plan Discharge Plan Discharge Clinical Impression: Strain of lumbar region Qualifiers: Encounter type: initial encounter Qualified Code(s): S39.012A - Strain of muscle, fascia and tendon of lower back, initial encounter Patient Disposition: Home, Self-Care Condition: Improved Instructions: Low Back Strain (ED) Additional Instructions: Your pain may be due to herniated disc or a back strain. I recommend follow-up with primary care or back specialist if your pain persists as he may need physical therapy. Take the medication provided. While you are taking Toradol do not use other NSAIDs such as naproxen or ibuprofen as there same class of drugs. If you are unable to empty your bladder return for re-evaluation. Prescriptions: New ketorolac 10 mg tablet 10 mg PO Q6H PRN (Reason: pain) Qty: 20 0RF Rx Instructions: maximum total duration of 5 days from all oral, intranasal, or parenteral formulations oxycodone 5 mg tablet 5 mg PO Q6H PRN (Reason: pain) Qty: 12 0RF lidocaine-menthol 5-6 % kit See Rx Instructions .ROUTE .COMPLEX Qty: 5 0RF Rx Instructions: apply LIDIOCAINE PATCH once a day/may leave on for up to 12 hrs; apply MENTHOL GEL 1 - 4 times/day as needed for pain. No Action ondansetron 4 mg tablet,disintegrating 4 mg PO Q6H PRN (Reason: nausea and vomiting) Qty: 10 0RF Follow Up/Referrals: Provider,Not a Local [Primary Care Provider] - Stand Alone Forms: [employer] Info Instructions
--- NOTE | 2025-01-12 21:41 | ED.NURSE ---
Pt went to the bathroom, post void residual is 7ml
--- OUTSIDE RECORDS SUMMARY | 2025-01-12 21:50 | XMS_ITS | Continuity of Care Document ---
Author Organization [facility] Address [address] [place] [address] [place] [address] Phone Care Team Providers Care Desktop Support Consultant Name Role Phone Kike POPE, Florian Unavailable [...] Location Reason(s) For Visit Diagnoses Date Provider [facility], [address] [place] [address], [place], [id number], [place] tel:[phone] [facility] No Information Kike Du. [address] [place] [address], [place], [id number], [place]. tel:[phone] Office/outpati ent visit,est, mod [facility], [address] [place] [address], [place], [id number], [place] tel:[phone] [facility] hamstring pain (chief complaint) Strain of left hamstring, initial encounter Kike Du. [address] [place] [address], [place], [id number], [place]. tel:[phone] Office/outpati ent visit,est, mod [facility], [address] [place] [address], [place], [id number], [place] tel:[phone] [facility] hent Cough (chief complaint) CoughInfluenza A King Adriana. [address] [place] [address], [place], [id number], [place]. tel:[phone] [facility], [address] [place] [address], [place], [id number], [place] tel:[phone] [facility] No Information Kike Du. [address] [place] [address], [place], [id number], [place]. tel:[phone] Office/outpati ent visit,est, mod [facility], [address] [place] [address], [place], [id number], [place] tel:[phone] [facility] poss strep (chief complaint) Acute sinusitis, unspecified Kike Du. [address] [place] [address], [place], [id number], [place]. tel:[phone] Preventive checkup, est,12-17 yrs [facility], [address] [place] [address], [place], [id number], [place] tel:[phone] [facility] Well child (chief complaint) Encntr for routine child health exam w/o abnormal findingsBMI pediatric, 5th percentile to less than 85% for ageDietary counseling and surveillance Kike Du. [address] [place] [address], [place], [id number], [place]. tel:[phone] [facility], [address] [place] [address], [place], [id number], [place] tel:[phone] [facility] Lumbar pars defectDorsalgia Kike Du. [address] [place] [address], [place], [id number], [place]. tel:[phone] Office/outpati ent visit,est, mod [facility], [address] [place] [address], [place], [id number], [place] tel:[phone] [facility] neck pain (chief complaint) Injury of neck, initial encounter Haley Matias. [address] [place] [address], [place], [id number], [place]. tel:[phone] Preventive checkup, new,12-17 yrs [facility], [address] [place] [address], [place], [id number], [place] tel:[phone] [facility] Well Child (chief complaint) Encntr for routine child health exam w/o abnormal findingsPediatric body mass index (BMI) of 5th percentile to less than 85th percentile for age Kike Du. [address] [place] [address], [place], [id number], [place]. tel:[phone] [facility], [address] [place] [address], [place], [id number], [place] tel:[phone] [facility] No Information Kike Du. [address] [place] [address], [place], [id number], [place]. tel:[phone] Family History Family Member Type Diagnosis Age At Onset Problem (finding) Family history of thyro id disease Problem (finding) Family history of attention deficit hyperactivity disorder Immunizations Vaccine Date Status Comments HPV (9-valent) [...] Record Payers Payer name Insurance type Covered alliance party ID Authoriza tion(s) [employer] [place] [id number] [employer] [facility] [place] [id number] Social History Type Description Quantity Date Captured Comments Sex Male Smoking Status No Information Chief Complaint And Reason For Visit No Information Plan Of Treatment Date Type Action Status Referral Referred To: Physical Therapy Ordered: Referrals: Physical Therapy. Location: [facility] ordered Referral Ordered: Referrals: Diagnostic Radiology. Location: [facility]. Diagnostic testing ordered Referral Referred To: Physical Therapy Ordered: Referrals: Physical Therapy. Location: [facility] ordered History Of Present Illness Encounter Date [...]
--- OUTSIDE RECORDS SUMMARY | 2025-01-12 21:50 | XMS_ITS | Clinical Summary ---
Author Organization [facility] Address [address] [place] [address] Care Team Providers Care Floor And Wall Applier Liquid Name Role Phone Gamaliel Canseco Primary Care Provider [phone] Allergies No known active allergies Medications No [...] Comment:For more information , refer to the [facility] website (https://www.CryoXtract Instruments/legacylab). Triglyceride 68 0 - 89 mg/dL [facility] Comment:For more information , refer to the [facility] website (https://www.CryoXtract Instruments/legacylab). HDL 51 >=40 mg/dL [facility] Comment:For more information , refer to the [facility] website (https://www.C[employer] Instruments/legacylab). LDL 106 0 - 109 mg/dL [facility] Comment: For more information, refer to the [facility] website (https://www.CryoXtract Instruments/legacylab). LDL is calculated from Total Cholesterol, HDL, and Triglycerides using the Friedewald equation. Chol/HDL Ratio 3.4 0.0 - 5.0 [facility] Fasting? 12 [facility] Blood 06/16/2023 9:10 AM PDT 06/16/2023 9:13 AM PDT us Gamaliel E Helm CHEMISTRY ORDERABLES Final Resul t LOCATED WITHIN [facility] [address] [place] [address] from Last 3 Months or Most Recently Relevant to Health Maintenance Insurance [facility] CHOICE Care Teams Floor And Wall Applier Liquid Relationship Specialty Start Date End Date Gamaliel Canseco [address] [place] [address] PCP - General Pediatrics 05/11/22
--- OUTSIDE RECORDS SUMMARY | 2025-01-12 21:50 | XMS_ITS | Clinical Summary ---
Author Organization [facility] Address [address] [place] [address] Care Team Providers Care Post Partum Nurse Name Role Phone Pcp, No Primary Care [...] Comments Blood Pressure 120/72 09/25/2024 3:34 PM GOLF BALL MOLDER man ual BP Pulse 62 09/25/2024 3:34 PM GOLF BALL MOLDER Temperature 36.2 C (97.2 F) 09/25/2024 3:34 PM GOLF BALL MOLDER Respiratory Rate - - Oxygen Saturation 98% 09/25/2024 3:34 PM GOLF BALL MOLDER Inhaled Oxygen Concentration - - Weight - [...] age to complete this topic Care Teams Post Partum Nurse Relationship Specialty Start Date End Date Pcp, No . PCP - General 09/25/24
--- OUTSIDE RECORDS SUMMARY | 2025-01-12 21:50 | XMS_ITS | Referral Summary ---
Author Organization [facility] Address [address] [place] [address] Care Team Providers Care Exit Booth Agent Name Role Phone Florian Stokes MD Primary [...] Plan of Treatment Not on file Insurance [facility] Care Teams Exit Booth Agent Relationship Specialty Start Date End Date Florian Stokes MD PCP - General Pediatrics 04/06/18
--- OUTSIDE RECORDS SUMMARY | 2025-01-12 21:50 | XMS_ITS | Referral Summary ---
Author Organization [employer] Address [address] [place] [address] Care Team Providers Care Body Welder Name Role Phone Gamaliel Canseco Primary Care Provider Allergies No known active allergies Medications No [...] PDT) Cholesterol 171(H) 0 - 169 mg/dL [facility] Comment:For more information , refer to the [facility] website (https://www.Coupmon.YouBeauty/legacylab). Triglyceride 68 0 - 89 mg/dL [facility] Comment:For more information , refer to the [facility] website (https://www.TunePatrol/legacylab). HDL 51 >=40 mg/dL [facility] Comment:For more information , refer to the [facility] website (https://www.TunePatrol/legacylab). LDL 106 0 - 109 mg/dL [facility] Comment: For more information, refer to the [facility] website (https://www.TunePatrol/legacylab). LDL is calculated from Total Cholesterol, HDL, and Triglycerides using the Friedewald equation. Chol/HDL Ratio 3.4 0.0 - 5.0 [facility] Fasting? 12 [facility] Blood 06/16/2023 9:10 AM PDT 06/16/2023 9:13 AM PDT us Gamaliel Canseco CHEMISTRY ORDERABLES Final Resul t [facility] [address] [place] [address] from Last 3 Months or Most Recently Relevant to Health Maintenance Insurance [facility] CHOICE Care Teams Body Welder Relationship Specialty Start Date End Date Gamaliel Canseco [address] [place] [id number] PCP - General Pediatrics 05/11/22
--- OUTSIDE RECORDS SUMMARY | 2025-01-12 21:50 | XMS_ITS | Clinical Summary ---
Author Organization [facility] Address [address] [place] [address] Care Team Providers Care Director Of Special Services Name Role Phone Florian Stokes MD Primary [...] patient's age to complete this topic Insurance [facility] , [place] [facility] Care Teams Director Of Special Services Relationship Specialty Start Date End Date Florian Stokes MD PCP - General Pediatrics 04/06/18
--- OUTSIDE RECORDS SUMMARY | 2025-01-12 21:50 | XMS_ITS | Encounter Summary ---
Author Organization [facility] Address [address] [place] [address] Care Team Providers Care Home Help Aide Name Role Phone Florian Stokes MD Primary Care Provide r Encounter Details Date Type Department Care Team (Late st Contact Info) Description 04/06/2018 Transcribe Orders [facility] [address] [facility] [place] [address] Florian Stokes MD [phone] [place] [address] Backache Social History Tobacco Use [...] unspecified documented in this encounter Care Teams Home Help Aide Relationship Specialty Start Date End Date Florian Stokes MD PCP - General Pediatrics 04/06/18 documented as of this encounter
== END 2025-01-12 22:06 | disposition home or self-care (01) ==
PROVIDERS: Emergency Provider Student in an Organized Health Care Education/Training Program
DX: S39.012A Strain of muscle, fascia and tendon of lower back, initial encounter (principal); Y93.A1 Activity, exercise machines primarily for cardiorespiratory conditioning
CPT/HCPCS: 51798; 96374; 99283; A9270; J1885